=== PATIENT | male | born 1965 | race Caucasian/White ===

== ENCOUNTER 2020-11-25 16:32 | Outpatient (CLI) | payer BC ==
[2020-11-25 17:16] LABS: Hemoglobin 15.9 g/dL (13.5-17.5); Mean Corpuscular HGB CONC 36.8 g/dL (32.0-36.0); Mean Corpuscular Hemoglobin 32.6 pg (27.0-33.0); Mean Corpuscular Volume 88.7 fl (81.2-95.1); Mean Platelet Volume 9.8 fl (7.4-10.4); Platelet Count 189 10x3/uL (150-450); RBC Distribution Width 12.5 % (11.5-14.5); Red Blood Cell (RBC) Count 4.87 10x6/uL (4.32-5.72); White Blood Cell (WBC) Count 7.4 10x3/uL (3.5-10.5)
[2020-11-25 17:27] LABS: Anion Gap 13 mmol/L (10-20); BUN (Urea Nitrogen) 13 mg/dL (8.4-25.7); Calc. Creatinine Clearance 0 mL/min (70-130); Calcium 9.5 mg/dL (7.8-10.44); Carbon Dioxide 28 mmol/L (22-29); Chloride 101 mmol/L (98-107); Glucose 71 mg/dL (70-105); INR-International Normal Ratio 1.1; PTT 30.5 sec (22.0-33.0); Prothrombin Time 12.2 sec (9.5-12.1); Sodium 138 mmol/L (136-145)
[2020-11-26 01:53] LABS: SARS-CoV-2 PCR by NAA Not Detected (NotDetected)
== END 2020-11-25 16:33 | disposition home or self-care (01) ==
LOC: LABBT 16:32
PROVIDERS: ATTEND Internal Medicine Cardiovascular Disease
DX: Z01.818 Encounter for other preprocedural examination (principal); I48.91 Unspecified atrial fibrillation; Z20.822 Contact with and (suspected) exposure to COVID-19
CPT/HCPCS: 80048; 85027; 85610; 85730; 87635; 93005; 93010; U0003; U0005

== ENCOUNTER 2020-11-30 05:48 | Observation (INO) | payer BC ==
[2020-11-30] MEDS ORDERED: Lidocaine 1% (PF) 30 ML VIAL ONE (06:50)
[2020-11-30] MEDS ORDERED: Heparin 10,000 UNITS/ 10 ML VIAL ONE ×2 (06:52→10:13)
[2020-11-30] MEDS ORDERED: Fentanyl 100 MCG/2 ML VIAL ONE ×2 (08:17→10:53)
[2020-11-30] MEDS ORDERED: Midazolam HCl 2 mg/2 ml Vial ONE (08:17)
[2020-11-30] MEDS ORDERED: Lidocaine 1% PF 5 ML VIAL ONE (08:21)
[2020-11-30] MEDS ORDERED: Glycopyrrolate 0.2 MG/ML 5 ML SYRINGE ONE (08:21)
[2020-11-30] MEDS ORDERED: Rocuronium Bromide 10 MG/ML (10ML VIAL) ONE (08:21)
[2020-11-30] MEDS ORDERED: PROPOFOL 200 MG/20 ML VIAL ONE (08:21)
[2020-11-30] MEDS ORDERED: Isoproterenol 0.2 MG/1 ML AMP ONE ×2 (08:34→10:23)
[2020-11-30] MEDS ORDERED: SUGAMMADEX SODIUM 200 MG/2 ML VIAL ONE (09:58)
[2020-11-30] MEDS ORDERED: Rocuronium Bromide 50 MG/5 ML VIAL ONE (09:59)
[2020-11-30] MEDS ORDERED: Protamine Sulfate 50 MG/5 ML VIAL ONE (10:48)
[2020-11-30] MEDS ORDERED: HYDROcodone/Acetaminophen 5/325 mg Tablet PO PRN (11:45)
[2020-11-30] MEDS: HYDROcodone/Acetaminophen 5/325 mg Tablet PO PRN ×2 (16:10→20:16)
[2020-11-30 19:37] VITALS: TEMP 98.4
[2020-11-30] MEDS ORDERED: Hydrochlorothiazide 25 MG TAB PO SCH (20:00)
[2020-11-30] MEDS ORDERED: Losartan 25 MG TAB PO SCH (20:00)
[2020-11-30] MEDS: Apixaban 5 MG TAB PO SCH (20:18)
[2020-11-30] MEDS ORDERED: Gabapentin 100 MG CAP PO SCH (21:00)
[2020-12-01 08:01] VITALS: BMI 37.3
[2020-12-01] MEDS: Apixaban 5 MG TAB PO SCH (08:03)
[2020-12-01] MEDS ORDERED: Hydrochlorothiazide 25 MG TAB PO SCH (09:00)
[2020-12-01] MEDS ORDERED: Aspirin 81 mg Enteric Coated Tablet PO SCH (09:00)
[2020-12-01] MEDS ORDERED: Losartan 25 MG TAB PO SCH (09:00)
[2020-12-01 11:23] VITALS: BP 147/89
== END 2020-12-01 12:20 | disposition home or self-care (01) ==
LOC: CCL 05:48 → 2SW 07:23
PROVIDERS: ADMIT Internal Medicine Cardiovascular Disease; ATTEND Internal Medicine Cardiovascular Disease
PROC: 4A023FZ Measurement of Cardiac Rhythm, Percutaneous Approach (ICD-10-PCS; principal; 2020-12-01)
PROC: 4A0234Z Measurement of Cardiac Electrical Activity, Percutaneous Approach (ICD-10-PCS; 2020-12-01)
PROC: 02583ZZ Destruction of Conduction Mechanism, Percutaneous Approach (ICD-10-PCS; 2020-12-01)
PROC: 02K83ZZ Map Conduction Mechanism, Percutaneous Approach (ICD-10-PCS; 2020-12-01)
DX: I48.0 Paroxysmal atrial fibrillation (principal); I48.4 Atypical atrial flutter; I10 Essential (primary) hypertension; E66.01 Morbid (severe) obesity due to excess calories; K21.9 Gastro-esophageal reflux disease without esophagitis; G25.81 Restless legs syndrome; G47.30 Sleep apnea, unspecified; F17.220 Nicotine dependence, chewing tobacco, uncomplicated; Z68.37 Body mass index [BMI] 37.0-37.9, adult; Z79.01 Long term (current) use of anticoagulants; Z79.82 Long term (current) use of aspirin; Z79.899 Other long term (current) drug therapy
CPT/HCPCS: 76942; 85347; 93005; 93010; 93613; 93655; 93656; 93662; C1732; C1759; C1884; G0378; J1644; J2001; J2250; J2704; J2720; J3010